=== PATIENT | male | born 1955 | race Caucasian/White ===

== ENCOUNTER 2018-09-20 19:09 | Emergency (ER) | payer MEDICARE, MEDICAID ==
[2018-09-20 19:28] VITALS: RESP 18; TEMP 97; O2SAT 99
[2018-09-20 19:48] VITALS: BP 164/99; PULSE 64
== END 2018-09-20 19:45 | disposition home or self-care (01) | DRG 918 ==
LOC: ED 19:09
DX: T43.91XA Poisoning by unspecified psychotropic drug, accidental (unintentional), initial encounter (principal)
CPT/HCPCS: 99282